=== PATIENT | female | born 1970 | race Caucasian/White ===

== ENCOUNTER 2024-06-23 13:02 | Emergency (ER) | payer OTHER ==
[2024-06-23 14:03] VITALS: RESP 18; TEMP 97.6; BMI 23.6
[2024-06-23 14:34] LABS: BASO % 0.9 % (0-2.0); EOS % 3.1 % (0-4.5); HEMATOCRIT 39.6 % (32.4-45.2); HEMOGLOBIN 13.1 GM/dL (10.7-15.3); LYMPH % 41.5 % (8-40); MCH 31.8 pg (25.7-33.7); MCHC 33.1 g/dl (32.0-36.0); MEAN PLT VOLUME 7.5 fl (7.5-11.1); MONO % 5.8 % (3.8-10.2); NEUT % 48.7 % (42.8-82.8); PLATELET COUNT 352 10^3/uL (134-434); RBC 4.12 M/mm3 (3.60-5.2); RDW 13.6 % (11.6-15.6); WHITE BLOOD COUNT 10.8 K/mm3 (4.0-10.0)
[2024-06-23 14:41] LABS: POTASSIUM 4.9 mmol/L (3.5-5.1)
[2024-06-23 14:41] LABS: INR 0.96 (0.83-1.09); PROTHROMBIN TIME (PATIENT) 10.9 SEC (9.7-13.0)
[2024-06-23 14:42] LABS: CALCIUM 9.5 mg/dL (8.5-10.1)
[2024-06-23 14:46] LABS: CREATININE 1.1 mg/dL (0.55-1.3)
[2024-06-23 16:34] VITALS: BP 110/80; PULSE 76
[2024-06-23] MEDS ORDERED: MIDAZOLAM HCL 5 MG/1 ML Single Dose Vial ONE (18:18)
[2024-06-23] MEDS: MIDAZOLAM HCL 5 MG/1 ML Single Dose Vial IVPUSH ONE (18:22)
== END 2024-06-23 20:18 | disposition home or self-care (01) ==
LOC: JER 13:02
PROC: 3E033GC Introduction of Other Therapeutic Substance into Peripheral Vein, Percutaneous Approach (ICD-10-PCS; principal; 2024-06-23)
DX: R51.9 Headache, unspecified (principal)
CPT/HCPCS: 36415; 70450-TC; 70553-TC; 80048; 85025; 85610; 96374; 99285-25